=== PATIENT | male | born 2000 | race Caucasian/White ===

== ENCOUNTER 2021-08-25 12:02 | Emergency (ER) | payer OTHER, SELFPAY ==
[2021-08-25 12:11] VITALS: BP 113/89; PULSE 90; RESP 16; TEMP 36.9; O2SAT 99
--- NOTE | 2021-08-25 12:28 | ED.URI ---
HPI - URI/Sore Throat General Chief Complaint: Upper Respiratory Infection Stated Complaint: sore throat/cough/stuffy nose Source: patient and RN notes reviewed Mode of arrival: ambulatory History of Present Illness HPI Narrative: This is a 21-year-old male who presented to urgent care with complaints of a cough nonproductive, sore throat and stuffy nose that started yesterday. According to patient he took cough drops and ibuprofen at home for his symptoms. Patient also noted that a couple weeks ago he tested positive for influenza. He did note that his symptoms today is not as severe as when he was diagnosed with influenza. A The patient denies SOB, CP, palpitation, extremity numbness, lightheadedness, dizziness, constipation, diarrhea, chills, or fever. Patient notes that his sister has similar symptoms that started approximately 1 week ago. He is a college student. Denies being around any ill person Related Data Allergies Allergy/AdvReac Type Severity Reaction Status Date / Time No Known Allergies Allergy Verified 08/25/21 12:18 Review of Systems Review of Systems: A 14 organ system Review of Systems was performed and pertinent positives included in the HPI, otherwise remaining ROS is negative. [facility] Family History Family History (Updated 08/25/21 @ 12:29 by NATALIIA Grant) Other Family history non-contributory Exam Narrative: GENERAL: This is a well-nourished, well-developed patient, in no apparent distress. HEAD: normocephalic, atraumatic. EYES: PERRL. Sclera clear/white. Vision is grossly intact. EARS: External ears normal, auditory canals clear and without drainage, TMs normal without perforation. Hearing grossly intact. NOSE: External nose normal with no obvious nasal discharge, nares without redness, no rhinorrhea. THROAT: Mucous membranes moist, posterior pharynx clear. NECK: Neck supple, non-tender without lymphadenopathy, masses or thyromegaly. CARDIOVASCULAR: Regular rate and rhythm without murmurs, gallops, or rubs. RESPIRATORY: Clear to auscultation. Breath sounds equal bilaterally. No wheezes, rales, or rhonchi. GASTROINTESTINAL: Abdomen soft, non-tender, nondistended. Bowel sounds are active. No hepato-splenomegaly, or palpable masses. No guarding. SKIN: warm, intact with no suspicious lesions or rash, good texture and turgor. NEURO: awake, alert, and oriented to person, place and time. There were no obvious focal neurologic abnormalities. Steady gait EXTREMITIES: Normal range of motion. No edema. No calf tenderness. Negative Homans sign bilaterally. BACK: Nontender without deformity or crepitance. No flank tenderness. Course Course Emergency Course: Patient will discharge home with Tessalon Perles, guaifenesin and Flonase to treat his symptoms. Per patient request Covid PCR testing. Vital Signs Vital signs: Vital Signs Temperature 98.4 F 08/25/21 12:11 Pulse Rate 90 08/25/21 12:11 Respiratory Rate 16 08/25/21 12:11 Blood Pressure 113/89 08/25/21 12:11 Pulse Oximetry 99 08/25/21 12:11 Temperature 98.4 F 08/25/21 12:11 Pulse Rate 90 08/25/21 12:11 Respiratory Rate 16 08/25/21 12:11 Blood Pressure 113/89 08/25/21 12:11 Pulse Oximetry 99 08/25/21 12:11 MDM - URI/Sore Throat Differential Diagnosis Differential diagnosis: Likely upper respiratory infection, viral infection and influenza Discharge Plan Discharge Clinical Impression: Viral infection Patient Disposition: Home, Self-Care Condition: Stable Instructions: Antibiotic Form, Viral Syndrome (ED) Additional Instructions: What care is needed at home? Ask your doctor what you need to do when you go home. Make sure you ask questions if you do not understand what the doctor says. This way you will know what you need to do. Make breathing easier: Use a cool mist humidifier in your bedroom. This will add moisture to the room. Raise the head of your bed or sleep with your head and s
== END 2021-08-25 12:40 | disposition home or self-care (01) ==
PROVIDERS: Emergency Provider Nurse Practitioner; PCP Nurse Practitioner Family
DX: B34.9 Viral infection, unspecified (principal); Z20.822 Contact with and (suspected) exposure to COVID-19
CPT/HCPCS: 99213; G0463